=== PATIENT | male | born 1985 | race Caucasian/White ===

== ENCOUNTER 2017-01-02 11:55 | Emergency (ER) | payer SELFPAY ==
[~2017-01-02] VITALS: Ht 180.3 cm; Wt 96.6 kg
[2017-01-02] MEDS ORDERED: [UNRECOGNIZED DRUG - OTHER] (12:22)
[2017-01-02] MEDS ORDERED: ZITHTAB PO (14:33)
[2017-01-02 14:48] VITALS: BP 146/88
== END 2017-01-02 15:02 | disposition home or self-care (01) ==
LOC: M ED 14:56
DX: J20.9 Acute bronchitis, unspecified (principal)

== ENCOUNTER → 2017-06-04 | Outpatient (CLI) | payer SELFPAY ==
[~2017-06-04] MED LIST: ZITHTAB PO; [UNRECOGNIZED DRUG - OTHER]
== END ==
LOC: M OUTALCOH 12:18
PROVIDERS: ATTEND Psychiatry & Neurology Psychiatry
DX: Z13.9 Encounter for screening, unspecified (principal); F12.10 Cannabis abuse, uncomplicated

== ENCOUNTER → 2017-06-14 | Outpatient (RCR) | payer SELFPAY | LOC: M OUTALCOH 15:48 | PROVIDERS: ATTEND Psychiatry & Neurology Psychiatry | DX: F12.10 Cannabis abuse, uncomplicated (principal); Z72.0 Tobacco use ==

== ENCOUNTER 2017-07-12 09:00 | Outpatient (RCR) | payer SELFPAY | END 2017-07-14 | LOC: M OUTALCOH 09:00 | PROVIDERS: ATTEND Psychiatry & Neurology Psychiatry | DX: F12.10 Cannabis abuse, uncomplicated (principal); Z72.0 Tobacco use ==

== ENCOUNTER → 2017-09-13 | Outpatient (RCR) | payer SELFPAY | LOC: M OUTALCOH 08-17 09:00 | PROVIDERS: ATTEND Psychiatry & Neurology Psychiatry | DX: F12.10 Cannabis abuse, uncomplicated (principal); Z72.0 Tobacco use; F10.10 Alcohol abuse, uncomplicated ==

== ENCOUNTER 2017-09-19 16:00 | Outpatient (RCR) | payer SELFPAY | END 2017-10-14 | LOC: M OUTALCOH 09-26 16:00 | DX: F12.10 Cannabis abuse, uncomplicated (principal); Z72.0 Tobacco use; F10.10 Alcohol abuse, uncomplicated ==

== ENCOUNTER 2017-10-18 15:46 | Outpatient (RCR) | payer MEDICAID, SELFPAY | END 2017-11-14 | LOC: M OUTALCOH 15:46 | DX: F12.10 Cannabis abuse, uncomplicated (principal); Z72.0 Tobacco use; F10.10 Alcohol abuse, uncomplicated ==

== ENCOUNTER 2017-10-20 01:02 | Emergency (ER) | payer OTHER, SELFPAY | END 2017-10-20 02:37 | disposition home or self-care (01) | LOC: M ED 01:02 | DX: L08.1 Erythrasma (principal); J40 Bronchitis, not specified as acute or chronic; F17.210 Nicotine dependence, cigarettes, uncomplicated | CPT/HCPCS: 71046 ==

== ENCOUNTER 2017-11-16 09:47 | Outpatient (RCR) | payer MEDICAID | END 2017-12-12 | LOC: M OUTALCOH 09:47 | DX: F12.10 Cannabis abuse, uncomplicated (principal); F10.10 Alcohol abuse, uncomplicated; Z72.0 Tobacco use ==

== ENCOUNTER → 2017-11-21 | Outpatient (REF) | payer MEDICAID | LOC: M LAB REF 14:49 | DX: J00 Acute nasopharyngitis [common cold] (principal) ==

== ENCOUNTER 2017-12-19 16:00 | Outpatient (RCR) | payer MEDICAID | END 2018-01-12 | LOC: M OUTALCOH 12-24 14:00 | DX: F12.10 Cannabis abuse, uncomplicated (principal); Z72.0 Tobacco use; F10.10 Alcohol abuse, uncomplicated ==

== ENCOUNTER 2018-01-14 14:01 | Outpatient (RCR) | payer MEDICAID | END 2018-02-11 | LOC: M OUTALCOH 14:01 | DX: F12.10 Cannabis abuse, uncomplicated (principal); Z72.0 Tobacco use; F10.10 Alcohol abuse, uncomplicated ==

== ENCOUNTER 2018-02-13 10:10 | Outpatient (RCR) | payer MEDICAID | END 2018-03-14 | LOC: M OUTALCOH 10:10 | DX: F12.10 Cannabis abuse, uncomplicated (principal); F10.10 Alcohol abuse, uncomplicated; Z72.0 Tobacco use ==

== ENCOUNTER → 2018-05-29 | Outpatient (CLI) | payer MEDICAID | LOC: M OUTALCOH 07:49 | DX: Z13.9 Encounter for screening, unspecified (principal); F12.10 Cannabis abuse, uncomplicated; F10.20 Alcohol dependence, uncomplicated ==

== ENCOUNTER 2018-06-19 10:03 | Outpatient (RCR) | payer MEDICAID | END 2018-07-14 | LOC: M OUTALCOH 06-21 08:45 | DX: F12.20 Cannabis dependence, uncomplicated (principal); Z72.0 Tobacco use; F10.20 Alcohol dependence, uncomplicated ==

== ENCOUNTER 2018-07-17 14:58 | Outpatient (RCR) | payer MEDICAID | END 2018-08-14 | LOC: M OUTALCOH 14:58 | DX: F12.10 Cannabis abuse, uncomplicated (principal); Z72.0 Tobacco use; F10.20 Alcohol dependence, uncomplicated ==

== ENCOUNTER 2018-08-15 11:29 | Outpatient (RCR) | payer MEDICAID | END 2018-09-13 | LOC: M OUTALCOH 08-21 15:00 | DX: F10.20 Alcohol dependence, uncomplicated (principal); Z72.0 Tobacco use; F12.20 Cannabis dependence, uncomplicated ==

== ENCOUNTER 2018-09-03 17:04 | Emergency (ER) | payer OTHER, MEDICAID ==
[2018-09-03] MEDS: PERCOCET 5MG/325MG TAB PO (17:29)
== END 2018-09-03 18:54 | disposition home or self-care (01) ==
LOC: M ED 17:04
DX: S90.02XA Contusion of left ankle, initial encounter (principal); S90.32XA Contusion of left foot, initial encounter; M25.572 Pain in left ankle and joints of left foot; W13.2XXA Fall from, out of or through roof, initial encounter; Y92.098 Other place in other non-institutional residence as the place of occurrence of the external cause; Z87.81 Personal history of (healed) traumatic fracture
CPT/HCPCS: 73610

== ENCOUNTER → 2018-10-14 | Outpatient (RCR) | payer MEDICAID, SELFPAY ==
[~2018-10-14] MED LIST changes: +AMOX875T PO; +BENZ5GEL13 EX; +BIAX500T14 PO; +IBUP80TA PO; +MAGICMW SSP; +PERC5TAB12 PO
== END | disposition home or self-care (01) ==
LOC: M OUTALCOH 09-16 09:59
PROVIDERS: ATTEND Psychiatry & Neurology Psychiatry
DX: F12.20 Cannabis dependence, uncomplicated (principal); F10.20 Alcohol dependence, uncomplicated; Z72.0 Tobacco use

== ENCOUNTER 2018-10-27 20:23 | Emergency (ER) | payer MEDICAID, OTHER, SELFPAY ==
[~2018-10-27] VITALS: Ht 180.3 cm; Wt 97.7 kg
[~2018-10-27 20:23] MED LIST changes: -AMOX875T PO; -MAGICMW SSP; -PERC5TAB12 PO
[2018-10-27] MEDS ORDERED: AMOXICILLIN 500 MG CAP PO ONE (21:45)
[2018-10-27] MEDS ORDERED: PERCOCET 5MG/325MG TAB PO ONE (21:45)
[2018-10-27] MEDS ORDERED: MAGIC MOUTHWASH SUSPENSION BTL SS ONE (21:45)
[2018-10-27] MEDS ORDERED: PERC5TAB12 PO (21:48)
[2018-10-27] MEDS ORDERED: MAGICMW SSP (21:48)
[2018-10-27] MEDS ORDERED: AMOX875T PO (21:48)
[2018-10-27 21:56] VITALS: BP 134/77
== END 2018-10-27 22:16 | disposition home or self-care (01) ==
LOC: M ED 20:23
DX: J02.0 Streptococcal pharyngitis (principal); K12.0 Recurrent oral aphthae

== ENCOUNTER 2018-11-01 15:00 | Outpatient (RCR) | payer MEDICAID, SELFPAY ==
[~2018-11-01 15:00] MED LIST changes: +AMOX875T PO; +MAGICMW SSP; +PERC5TAB12 PO
== END 2018-11-14 ==
LOC: M OUTALCOH 15:00
PROVIDERS: ATTEND Psychiatry & Neurology Psychiatry
DX: F10.20 Alcohol dependence, uncomplicated (principal); F12.20 Cannabis dependence, uncomplicated

== ENCOUNTER 2019-01-04 14:19 | Emergency (ER) | payer MEDICAID, OTHER ==
[~2019-01-04] VITALS: Ht 180.3 cm; Wt 97.5 kg
[2019-01-04] MEDS ORDERED: OSELTAMIVIR PHOSPHATE 75 MG CAP (TAMIFLU) PO ONE (14:45)
[2019-01-04 14:57] VITALS: BP 117/69
[2019-01-04] MEDS ORDERED: OSEL75CA PO (15:00)
== END 2019-01-04 15:19 | disposition home or self-care (01) ==
LOC: M ED 14:19
DX: Z20.89 Contact with and (suspected) exposure to other communicable diseases (principal)

== ENCOUNTER 2019-01-06 19:25 | Emergency (ER) | payer OTHER ==
[~2019-01-06] VITALS: Ht 180.3 cm; Wt 97.7 kg
[2019-01-06 19:25] VITALS: BP 142/82
[~2019-01-06 19:25] MED LIST changes: +OSEL75CA PO
[2019-01-06] MEDS ORDERED: KETOROLAC 60 MG/2 ML VIAL (J1885) IM ONE (20:45)
[2019-01-06] MEDS ORDERED: METHOCARBAMOL 750 MG TAB PO ONE (20:45)
[2019-01-06] MEDS ORDERED: LIDOCAINE 5% (LIDODERM) PATCH TD ONE (21:45)
[2019-01-06] MEDS ORDERED: diazePAM 5 MG TAB PO ONE (21:45)
[2019-01-07] MEDS ORDERED: **NOTE PATIENT COMMENT** MISC XX ONE (09:45)
== END 2019-01-06 22:00 | disposition left against medical advice (07) ==
LOC: M ED 19:25
DX: S39.012A Strain of muscle, fascia and tendon of lower back, initial encounter (principal); W01.0XXA Fall on same level from slipping, tripping and stumbling without subsequent striking against object, initial encounter; Y93.01 Activity, walking, marching and hiking; Y92.9 Unspecified place or not applicable; E78.5 Hyperlipidemia, unspecified; F17.210 Nicotine dependence, cigarettes, uncomplicated
CPT/HCPCS: 96372; 99281; J1885

== ENCOUNTER → 2019-11-03 | Outpatient (REF) | payer OTHER, MEDICAID ==
[2019-11-03 11:42] LABS: BASO % 0.5 % (0.0-1.0); EOS # 0.3 10^3/uL (0.0-0.5); EOS % 5.3 % (0.0-3.0); HEMATOCRIT 52.6 % (42.0-52.0); HEMOGLOBIN 18.2 g/dl (13.5-17.5); LYMPH % 35.8 % (24.0-44.0); MEAN CORPUSCULAR HEMOGLOBIN 30.5 pg (27.0-33.0); MEAN CORPUSCULAR HGB CONC 34.6 g/dl (32.0-36.5); MEAN CORPUSCULAR VOLUME 88.3 fl (80.0-96.0); MONO # 0.4 10^3/uL (0.0-0.8); NEUTROPHILS # 2.9 10^3/uL (1.5-8.5); PLATELET COUNT, AUTOMATED 207 10^3/uL (150-450); RED BLOOD COUNT 5.96 10^6/uL (4.30-6.10); WHITE BLOOD COUNT 5.7 10^3/uL (4.0-10.0)
[2019-11-03 12:07] LABS: HEMOGLOBIN A1c 5.6 %
[2019-11-03 12:17] LABS: ALBUMIN 4.4 GM/DL (3.2-5.2); ALT/SGPT 40 U/L (12-78); BILIRUBIN,TOTAL 0.5 MG/DL (0.2-1.0); BLOOD UREA NITROGEN 10 MG/DL (7-18); CALCIUM LEVEL 9.4 MG/DL (8.5-10.1); CARBON DIOXIDE LEVEL 23 MEQ/L (21-32); CHLORIDE LEVEL 106 MEQ/L (98-107); CHOLESTEROL LEVEL 236 MG/DL (<200); CHOLESTEROL RISK RATIO 5.363 (<5); CREATININE FOR GFR 0.96 MG/DL (0.70-1.30); FREE T4 1.05 NG/DL (0.76-1.46); GLOMERULAR FILTRATION RATE > 60.0 (>60); GLUCOSE, FASTING 106 MG/DL (70-100); HDL CHOLESTEROL 44 MG/DL (>40); LDL CHOLESTEROL 155 MG/DL (<100); NON-HDL-C 192 MG/DL; POTASSIUM SERUM 4.5 MEQ/L (3.5-5.1); SODIUM LEVEL 138 MEQ/L (136-145); THYROID STIMULATING HORMONE 0.729 uIU/ML (0.358-3.740); TOTAL 25(OH) VITAMIN D 22.2 NG/ML (30.0-100.0); TOTAL PROTEIN 7.2 GM/DL (6.4-8.2); TRIGLYCERIDES LEVEL 183 MG/DL (<150)
[2019-11-03 13:34] LABS: IMMUNOGLOBULIN A 29.2 MG/DL (70-400)
[2019-11-06 00:07] LABS: F002-IgE Milk < 0.10 kU/L (Class 0); F004-IgE Wheat < 0.10 kU/L (Class 0); F013-IgE Peanut < 0.10 kU/L (Class 0); F014-IgE Soybean < 0.10 kU/L (Class 0); F026-IgE Pork < 0.10 kU/L (Class 0); F027-IgE Beef < 0.10 kU/L (Class 0); F245-IgE Egg, Whole < 0.10 kU/L (Class 0); FX02-IgE Food Mix (Sea Foods) Negative (.); Lyme Disease IgG/IgM Antibodie <0.91 ISR (0.00-0.90); Lyme Disease IgM Ab Quantitati <0.80 index (0.00-0.79); TISSUE TRANSGLUTAMINASE IgA <2 U/mL (0-3)
== END ==
LOC: M LAB REF 11:01
PROVIDERS: ATTEND Family Medicine
DX: Z13.228 Encounter for screening for other metabolic disorders (principal); T78.1XXA Other adverse food reactions, not elsewhere classified, initial encounter; R20.2 Paresthesia of skin

== ENCOUNTER 2020-10-22 16:48 | Emergency (ER) | payer OTHER, MEDICAID ==
[~2020-10-22] VITALS: Ht 180.3 cm; Wt 101.4 kg
[2020-10-22] MEDS ORDERED: CETI-24 (16:59)
[2020-10-22 17:41] LABS: BASO % 0.5 % (0.0-1.0); EOS # 0.5 10^3/uL (0.0-0.5); EOS % 6.2 % (0.0-3.0); HEMATOCRIT 50.8 % (42.0-52.0); HEMOGLOBIN 17.1 g/dl (13.5-17.5); LYMPH # 2.3 10^3/uL (1.5-5.0); LYMPH % 31.3 % (24.0-44.0); MEAN CORPUSCULAR HEMOGLOBIN 30.6 pg (27.0-33.0); MEAN CORPUSCULAR HGB CONC 33.7 g/dl (32.0-36.5); MONO # 0.5 10^3/uL (0.0-0.8); MONO % 6.6 % (0.0-5.0); NEUTROPHILS # 4.1 10^3/uL (1.5-8.5); NEUTROPHILS % 55.1 % (36.0-66.0); PLATELET COUNT, AUTOMATED 194 10^3/uL (150-450); RED BLOOD COUNT 5.58 10^6/uL (4.30-6.10); WHITE BLOOD COUNT 7.4 10^3/uL (4.0-10.0)
--- NOTE | 2020-10-22 17:42 | REP ---
INDICATION: CHEST PAIN COMPARISON: 10/20/2017 TECHNIQUE: PA and lateral. FINDINGS: The mediastinum and cardiac silhouette are normal. The lung avery are clear and without acute consolidation, effusion, or pneumothorax. The skeletal structures are intact and normal. IMPRESSION: No acute cardiopulmonary process. <Electronically signed by Uli Dunham > 10/22/20 [id number]
[2020-10-22 18:14] LABS: ALBUMIN 4.2 GM/DL (3.2-5.2); ALT/SGPT 51 U/L (12-78); BILIRUBIN,DIRECT < 0.1 MG/DL (0.0-0.2); BILIRUBIN,TOTAL 0.3 MG/DL (0.2-1.0); BLOOD UREA NITROGEN 16 MG/DL (7-18); CALCIUM LEVEL 9.1 MG/DL (8.5-10.1); CARBON DIOXIDE LEVEL 26 MEQ/L (21-32); CHLORIDE LEVEL 107 MEQ/L (98-107); CK-MB VALUE MASS 2.7 NG/ML (<3.6); CPK CREATINE PHOSPHOKINASE 200 U/L (39-308); GLOMERULAR FILTRATION RATE > 60.0 (>60); GLUCOSE, FASTING 122 MG/DL (70-100); LIPASE 135 U/L (73-393); MB/CK RELATIVE INDEX 1.35 (< OR =4); POTASSIUM SERUM 4.3 MEQ/L (3.5-5.1); SODIUM LEVEL 139 MEQ/L (136-145); TOTAL PROTEIN 7.1 GM/DL (6.4-8.2); TROPONIN I < 0.02 NG/ML (< 0.10)
[2020-10-22 18:15] LABS: ERYTHROCYTE SEDIMENTATION RATE 1 mm/hr (0-15)
[2020-10-22] MEDS ORDERED: NAPR-837 PO (18:21)
[2020-10-22 18:29] VITALS: BP 146/86
--- NOTE | 2020-10-22 21:54 | ECGEPIP ---
[facility] - ED Test Date: 2020-10-22 Pat Name: JUAN MANDUJANO Department: Room: - Gender: Male [employer] Engineer: LAISHA : 1985 Requested By: ALETA SRINIVASAN PA-C Order Number: [id number] Reading MD: Amandeep Rudolph Measurements Intervals [place] Rate: 75 P: 77 W[place]: 164 QRS: 89 QRSD: 94 T: 78 QT: 339 QTc: 379 Interpretive Statements SINUS RHYTHM WITH SINUS ARRHYTHMIA NO PRIORS FOR COMPARISON Electronically Signed on 10-22-2020 21:54:07 EST by Amandeep Rudolph
== END 2020-10-22 18:33 | disposition home or self-care (01) ==
LOC: M ED 16:48
DX: R07.89 Other chest pain (principal); E78.5 Hyperlipidemia, unspecified; R51.9 Headache, unspecified

== ENCOUNTER 2022-05-01 10:14 | Emergency (ER) | payer MEDICAID, OTHER ==
[~2022-05-01] VITALS: Ht 185.4 cm; Wt 89.7 kg
[~2022-05-01 10:14] MED LIST changes: +CETI-24; +NAPR-837 PO
[2022-05-01] MEDS ORDERED: ONDANSETRON 4MG ORAL DISINTEGRATING TAB PO ONE (12:05)
[2022-05-01 12:25] LABS: BASO % 0.4 % (0.0-1.0); EOS # 0.3 10^3/uL (0.0-0.5); EOS % 4.9 % (0.0-3.0); HEMATOCRIT 50.9 % (42.0-52.0); HEMOGLOBIN 17.3 g/dl (13.5-17.5); LYMPH # 1.7 10^3/uL (1.5-5.0); MEAN CORPUSCULAR HEMOGLOBIN 31.3 pg (27.0-33.0); MONO # 0.4 10^3/uL (0.0-0.8); MONO % 6.3 % (2.0-8.0); NEUTROPHILS # 3.2 10^3/uL (1.5-8.5); NEUTROPHILS % 57.9 % (36.0-66.0); PLATELET COUNT, AUTOMATED 166 10^3/uL (150-450); RED BLOOD COUNT 5.53 10^6/uL (4.30-6.10); WHITE BLOOD COUNT 5.6 10^3/uL (4.0-10.0)
[2022-05-01 13:10] LABS: ALBUMIN 4.2 GM/DL (3.2-5.2); ALT/SGPT 40 U/L (12-78); BILIRUBIN,TOTAL 0.6 MG/DL (0.2-1.0); BLOOD UREA NITROGEN 12 MG/DL (7-18); CALCIUM LEVEL 9.4 MG/DL (8.5-10.1); CARBON DIOXIDE LEVEL 27 MEQ/L (21-32); CHLORIDE LEVEL 106 MEQ/L (98-107); CREATININE FOR GFR 0.92 MG/DL (0.70-1.30); GLOMERULAR FILTRATION RATE > 60.0 (>60); GLUCOSE, FASTING 106 MG/DL (70-100); POTASSIUM SERUM 4.4 MEQ/L (3.5-5.1); SODIUM LEVEL 139 MEQ/L (136-145)
[2022-05-01] MEDS ORDERED: HYDR50TA70 PO (13:26)
[2022-05-01] MEDS ORDERED: ONDA4TAB6 PO (13:26)
[2022-05-01 13:45] VITALS: BP 122/70
== END 2022-05-01 13:49 | disposition home or self-care (01) ==
LOC: M ED 10:14
DX: K92.2 Gastrointestinal hemorrhage, unspecified (principal); F41.9 Anxiety disorder, unspecified; E78.5 Hyperlipidemia, unspecified; Z79.899 Other long term (current) drug therapy

== ENCOUNTER 2022-08-23 12:17 | Emergency (ER) | payer OTHER ==
[~2022-08-23] VITALS: Ht 180.3 cm; Wt 90.9 kg
[~2022-08-23 12:17] MED LIST changes: +HYDR50TA70 PO; +ONDA4TAB6 PO
[2022-08-23 12:18] VITALS: BP 129/80
== END 2022-08-23 12:59 | disposition left against medical advice (07) ==
LOC: M ED 12:17
DX: Z53.21 Procedure and treatment not carried out due to patient leaving prior to being seen by health care provider (principal)

== ENCOUNTER → 2023-01-08 | Outpatient (REF) | payer OTHER | LOC: M LAB REF 17:41 | PROVIDERS: ATTEND Surgery | DX: D23.62 Other benign neoplasm of skin of left upper limb, including shoulder (principal) ==

== ENCOUNTER 2024-05-12 07:14 | Emergency (ER) | payer OTHER ==
[~2024-05-12] VITALS: Ht 180.3 cm; Wt 94.6 kg
[~2024-05-12 07:14] MED LIST changes: +ONDA-282 PO; -ONDA4TAB6 PO
[2024-05-12 08:11] LABS: BASO % 0.6 % (0.0-1.0); EOS # 0.3 10^3/uL (0.0-0.5); HEMATOCRIT 51.5 % (42.0-52.0); HEMOGLOBIN 17.5 g/dl (13.5-17.5); LYMPH # 1.7 10^3/uL (1.5-5.0); MEAN CORPUSCULAR HEMOGLOBIN 31.7 pg (27.0-33.0); MEAN CORPUSCULAR VOLUME 93.3 fl (80.0-96.0); MONO # 0.4 10^3/uL (0.0-0.8); MONO % 8.6 % (2.0-8.0); NEUTROPHILS # 2.4 10^3/uL (1.5-8.5); NEUTROPHILS % 48.6 % (36.0-66.0); PLATELET COUNT, AUTOMATED 172 10^3/uL (150-450); RED BLOOD COUNT 5.52 10^6/uL (4.30-6.10); WHITE BLOOD COUNT 4.9 10^3/uL (4.0-10.0)
[2024-05-12 08:34] LABS: LIPASE 45 U/L (12-53)
[2024-05-12 08:36] LABS: ALBUMIN 4.2 G/DL (3.2-5.2); ALKALINE PHOSPHATASE 70 U/L (46-116); ALT/SGPT 56 U/L (7.0-40); AST/SGOT 23 U/L (<34); BILIRUBIN,DIRECT 0.1 MG/DL (<0.4); BILIRUBIN,TOTAL 0.5 MG/DL (0.3-1.2); BLOOD UREA NITROGEN 17 MG/DL (9-23); CALCIUM LEVEL 9.4 MG/DL (8.5-10.1); CARBON DIOXIDE LEVEL 29 MMOL/L (20-31); CHLORIDE LEVEL 107 MMOL/L (98-107); CREATININE FOR GFR 0.86 MG/DL (0.70-1.30); GLOMERULAR FILTRATION RATE > 60.0 (>60); GLUCOSE, FASTING 115 MG/DL (60-100); POTASSIUM SERUM 4.3 MMOL/L (3.5-5.1); SODIUM LEVEL 140 MMOL/L (136-145); TOTAL PROTEIN 6.6 G/DL (5.7-8.2)
[2024-05-12] MEDS ORDERED: ISOVUE-370 76% 100ML VIAL As Ordered ONE (09:41)
[2024-05-12 10:49] VITALS: BP 136/67; TEMP 98; O2SAT 99
== END 2024-05-12 10:52 | disposition home or self-care (01) ==
LOC: M ED 07:14
DX: R14.0 Abdominal distension (gaseous) (principal); R19.7 Diarrhea, unspecified
CPT/HCPCS: 74177; 80048; 80076; 83690; 85025; 87177; 87507; 99284; Q9967

== ENCOUNTER → 2025-06-08 | Outpatient (CLI) | payer OTHER ==
[2025-06-08 08:49] LABS: BASO # 0.0 10^3/uL (0.0-0.2); BASO % 0.6 % (0.0-1.0); EOS # 0.3 10^3/uL (0.0-0.5); EOS % 5.3 % (0.0-3.0); LYMPH # 1.9 10^3/uL (1.5-5.0); LYMPH % 29.5 % (24.0-44.0); MONO # 0.6 10^3/uL (0.0-0.8); MONO % 8.8 % (2.0-8.0); NEUTROPHILS # 3.5 10^3/uL (1.5-8.5); NEUTROPHILS % 55.3 % (36.0-66.0); PLATELET COUNT, AUTOMATED 207 10^3/uL (150-450)
[2025-06-08 09:03] LABS: ERYTHROCYTE SEDIMENTATION RATE 2 mm/hr (0-15)
[2025-06-08 09:10] LABS: ESTIMATED AVERAGE GLUCOSE 108.0 MG/DL (60-110)
[2025-06-08 09:16] LABS: ALT/SGPT 66 U/L (7.0-40); AST/SGOT 40 U/L (<34); C REACTIVE PROTEIN QUANTITATIV < 0.50 MG/DL (<1.0); CALCIUM LEVEL 9.0 MG/DL (8.5-10.1); CARBON DIOXIDE LEVEL 28 MMOL/L (20-31); CHLORIDE LEVEL 104 MMOL/L (98-107); CHOLESTEROL LEVEL 282 MG/DL (<200); CHOLESTEROL RISK RATIO 5.32 (<5); CREATININE FOR GFR 0.93 MG/DL (0.70-1.30); GLOMERULAR FILTRATION RATE > 90.0 (>60); LDL CHOLESTEROL 177.0 MG/DL (<100); NON-HDL-C 229.0 MG/DL; POTASSIUM SERUM 4.4 MMOL/L (3.5-5.1); SODIUM LEVEL 142 MMOL/L (136-145); TRIGLYCERIDES LEVEL 260 MG/DL (<150)
[2025-06-08 09:18] LABS: RHEUMATOID FACTOR QUANT 4.5 IU/ML (<14)
[2025-06-08 09:20] LABS: FREE T4 1.30 NG/DL (0.89-1.76)
[2025-06-10 17:39] LABS: SSA SJOGRENS A <1.0 NEG AI (<1.0 NEG); SSB SJOGRENS B <1.0 NEG AI (<1.0 NEG)
== END ==
LOC: M RAD 06:59
DX: M54.2 Cervicalgia (principal); M54.6 Pain in thoracic spine; R21 Rash and other nonspecific skin eruption